=== PATIENT | male | born 1985 | race Caucasian/White ===

== ENCOUNTER 2023-01-06 08:25 | Emergency (ER) | payer SELFPAY ==
[~2023-01-06] VITALS: Ht 170.2 cm; Wt 70.0 kg
[2023-01-06 08:32] VITALS: O2SAT 100
[2023-01-06] MEDS ORDERED: LEVETIRACETAM 500MG TABLET PO ONE (08:45)
[2023-01-06] MEDS ORDERED: CHLORDIAZEPOXIDE 25MG CAPSULE PO ONE (09:30)
[2023-01-06 09:35] LABS: BASOPHILS % 0.8 % (0.0-2.0); EOSINOPHILS % 0.7 % (0.0-5.0); HEMATOCRIT. 45.5 % (42.0-52.0); HEMOGLOBIN. 15.6 g/dL (14.0-18.0); LYMPHOCYTES % 12.3 % (20.0-50.0); MEAN CORPUSCULAR HEMOGLOBIN 34.2 pg (28.0-32.0); MEAN CORPUSCULAR VOLUME 99.7 fL (80.0-94.0); MEAN PLATELET VOLUME 10.5 fl (7.4-10.4); MONOCYTES % 8.9 % (2.0-8.0); NEUTROPHILS % 77.3 % (40.0-76.0); PLATELET 133 x1000/uL (130-400); RED BLOOD CELL COUNT 4.57 mill/uL (4.7-6.1)
[2023-01-06 09:36] LABS: CHLORIDE 108 mEq/L (98-107)
[2023-01-06 09:43] LABS: ETHANOL BLOOD < 10 mg/dL (-10)
[2023-01-06] MEDS ORDERED: SODIUM CHLORIDE 0.9% 1,000 ML IV ONE (10:30)
[2023-01-06] MEDS ORDERED: ACETAMINOPHEN 325MG TABLET PO ONE (11:30)
[2023-01-06] MEDS ORDERED: LEVE750T4 MT (12:02)
[2023-01-06 12:08] VITALS: BP 133/70; PULSE 71; RESP 15; TEMP 98.4
[2023-01-06] MEDS ORDERED: ONDANSETRON 4MG ODT PO ONE (12:15)
== END 2023-01-06 12:30 | disposition home or self-care (01) ==
LOC: ER 08:39
DX: R56.9 Unspecified convulsions (principal); Z98.890 Other specified postprocedural states; Z88.8 Allergy status to other drugs, medicaments and biological substances
CPT/HCPCS: 80053; 80320; 82962; 83735; 85025; 36415; 99284; Q0162; J7030; Z7610; A4315; G0480

== ENCOUNTER 2023-01-06 12:49 | Emergency (ER) | payer SELFPAY ==
[~2023-01-06] VITALS: Ht 172.7 cm; Wt 86.0 kg
[~2023-01-06 12:49] MED LIST: LEVE750T4 MT
[2023-01-06 13:22] VITALS: O2SAT 99
[2023-01-06 15:22] VITALS: BP 122/80; PULSE 100; RESP 16; TEMP 98.3
== END 2023-01-06 15:25 | disposition home or self-care (01) ==
LOC: ER 13:30
DX: R56.9 Unspecified convulsions (principal); Z88.8 Allergy status to other drugs, medicaments and biological substances
CPT/HCPCS: 99281

== ENCOUNTER 2023-01-09 16:00 | Emergency (ER) | payer SELFPAY ==
[~2023-01-09] VITALS: Ht 170.2 cm; Wt 91.0 kg
[2023-01-09 16:08] VITALS: O2SAT 99
[2023-01-09] MEDS ORDERED: LEVETIRACETAM 1000MG PREMIX 100 ML IV ONE (16:45)
[2023-01-09 17:05] LABS: BASOPHILS % 0.6 % (0.0-2.0); EOSINOPHILS % 0.6 % (0.0-5.0); HEMATOCRIT. 46.6 % (42.0-52.0); HEMOGLOBIN. 15.8 g/dL (14.0-18.0); LYMPHOCYTES % 39.1 % (20.0-50.0); MEAN CORPUSCULAR HEMOGLOBIN 34.3 pg (28.0-32.0); MEAN CORPUSCULAR VOLUME 101.1 fL (80.0-94.0); MEAN PLATELET VOLUME 9.6 fl (7.4-10.4); MONOCYTES % 5.4 % (2.0-8.0); NEUTROPHILS % 54.3 % (40.0-76.0); PLATELET 171 x1000/uL (130-400); RED BLOOD CELL COUNT 4.61 mill/uL (4.7-6.1); RED CELL DISTRIBUTION WIDTH 14.3 % (11.6-14.6)
[2023-01-09 17:15] LABS: CHLORIDE 107 mEq/L (98-107)
[2023-01-09 17:36] LABS: ETHANOL BLOOD 407 mg/dL (-10)
[2023-01-09 18:30] VITALS: TEMP 98.6
[2023-01-09] MEDS ORDERED: FOLIC ACID 1 MG, THIAMINE HCL 100 MG, MVI, ADULT NO.1 10 ML in DEXTROSE 5% WATER 1,000 ML IV ONE ×4 (18:30)
[2023-01-09 21:34] VITALS: BP 127/77; PULSE 83; RESP 14
== END 2023-01-09 22:13 | disposition home or self-care (01) ==
LOC: ER 16:00
DX: R56.9 Unspecified convulsions (principal)
CPT/HCPCS: 80053; 80320; 85025; 36415; 93005; 96365; 96366; 96375; 99285; J1953; J3490 ×2; J3411; J7070; G0480

== ENCOUNTER 2023-01-16 13:55 | Emergency (ER) | payer MEDICAID ==
[~2023-01-16] VITALS: Ht 175.3 cm; Wt 106.0 kg
[2023-01-16 14:02] VITALS: O2SAT 99
[2023-01-16] MEDS ORDERED: LEVETIRACETAM 500MG PREMIX 100 ML IV ONE (14:30)
[2023-01-16] MEDS ORDERED: LORAZEPAM 2MG/ML CPJ IV ONE (14:30)
[2023-01-16] MEDS ORDERED: CHLORDIAZEPOXIDE 25MG CAPSULE PO ONE (14:30)
[2023-01-16] MEDS ORDERED: SODIUM CHLORIDE 0.9% 1,000 ML IV ONE ×2 (14:30)
[2023-01-16] MEDS ORDERED: METOCLOPRAMIDE HCL 10MG/2ML VIAL IV ONE (14:45)
[2023-01-16 15:00] LABS: BASOPHILS % 0.7 % (0.0-2.0); EOSINOPHILS % 0.4 % (0.0-5.0); HEMATOCRIT. 42.8 % (42.0-52.0); HEMOGLOBIN. 14.5 g/dL (14.0-18.0); LYMPHOCYTES % 32.7 % (20.0-50.0); MEAN CORPUSCULAR HEMOGLOBIN 34.1 pg (28.0-32.0); MEAN CORPUSCULAR VOLUME 100.5 fL (80.0-94.0); MEAN PLATELET VOLUME 9.5 fl (7.4-10.4); NEUTROPHILS % 55.2 % (40.0-76.0); PLATELET 96 x1000/uL (130-400); RED BLOOD CELL COUNT 4.27 mill/uL (4.7-6.1); RED CELL DISTRIBUTION WIDTH 13.9 % (11.6-14.6)
[2023-01-16 15:08] LABS: CHLORIDE 100 mEq/L (98-107)
[2023-01-16 15:13] LABS: ETHANOL BLOOD 86 mg/dL (-10)
[2023-01-16] MEDS ORDERED: KCL 20MEQ/100ML PREMIX 100 ML IV ONE (15:30)
[2023-01-16] MEDS ORDERED: POTASSIUM CHLORIDE 20MEQ TABLET SR PO NR (20:26)
[2023-01-16 23:45] VITALS: BP 118/77; PULSE 82; RESP 16; TEMP 98.4
== END 2023-01-16 23:53 | disposition home or self-care (01) ==
LOC: ER 13:55
DX: F10.239 Alcohol dependence with withdrawal, unspecified (principal); E87.6 Hypokalemia; I10 Essential (primary) hypertension; Y90.4 Blood alcohol level of 80-99 mg/100 ml
CPT/HCPCS: 80048; 80320; 85025; 36415; 96367; 96365; 96366; 96375; 99285; J1953; J2060; J2765; J3480; J7030; Z7610 ×3; G0480

== ENCOUNTER 2023-02-26 19:28 | Emergency (ER) | payer MEDICAID ==
[~2023-02-26] VITALS: Ht 172.7 cm; Wt 90.0 kg
[2023-02-26 19:36] VITALS: BP 138/62; PULSE 88; RESP 16; TEMP 98.4; O2SAT 98
[2023-02-26 20:35] LABS: BASOPHILS % 0.8 % (0.0-2.0); EOSINOPHILS % 1.2 % (0.0-5.0); HEMATOCRIT. 50.9 % (42.0-52.0); HEMOGLOBIN. 17.1 g/dL (14.0-18.0); LYMPHOCYTES % 47.3 % (20.0-50.0); MEAN CORPUSCULAR HEMOGLOBIN 33.7 pg (28.0-32.0); MEAN CORPUSCULAR HGB CONC 33.5 g/dL (31.0-37.0); MEAN CORPUSCULAR VOLUME 100.5 fL (80.0-94.0); MONOCYTES % 7.7 % (2.0-8.0); PLATELET 159 x1000/uL (130-400); RED BLOOD CELL COUNT 5.07 mill/uL (4.7-6.1); RED CELL DISTRIBUTION WIDTH 14.4 % (11.6-14.6); WHITE BLOOD COUNT 7.6 x1000/uL (4.5-11.0)
[2023-02-26 20:41] LABS: CHLORIDE 112 mEq/L (98-107); INDEX HEMOLYSI 2 (1-3); INDEX ICTERIC 1 (1-4); INDEX LIPEMIC 1 (1-3); POTASSIUM 3.8 mEq/L (3.5-5.1); SODIUM 144 mEq/L (136-145)
[2023-02-26 20:42] LABS: DIFFERENTIAL COMMENT 1
[2023-02-26 20:53] LABS: ALANINE AMINOTRANSFERASE 128 IU/L (13-61); ALBUMIN 3.9 g/dL (3.4-5.0); ASPARTATE AMINOTRANSFERASE 169 IU/L (15-37); BILIRUBIN TOTAL 0.2 mg/dL (0.1-1.0); CALCIUM 8.6 mg/dL (8.5-10.1); CARBON DIOXIDE 23 mEq/L (21-32); CREATININE 0.6 mg/dL (0.6-1.3); ETHANOL BLOOD 348 mg/dL (-10); GLUCOSE 101 mg/dL (70-105); PROTEIN TOTAL 8.8 g/dL (6.0-8.3); UREA NITROGEN BLOOD 9 mg/dL (7-21)
== END 2023-02-27 03:37 | disposition home or self-care (01) ==
LOC: ER 19:28
DX: F10.229 Alcohol dependence with intoxication, unspecified (principal); I10 Essential (primary) hypertension; Y90.8 Blood alcohol level of 240 mg/100 ml or more
CPT/HCPCS: 36415; 80053; 80320; 85025; 99283; G0480

== ENCOUNTER 2023-03-04 17:08 | Emergency (ER) | payer MEDICAID ==
[~2023-03-04] VITALS: Ht 337.8 cm; Wt 95.0 kg
[2023-03-04 17:11] VITALS: O2SAT 99
[2023-03-04] MEDS ORDERED: FAMOTIDINE 20MG/2ML VIAL IV NR (18:00)
[2023-03-04] MEDS ORDERED: SODIUM CHLORIDE 0.9% 1,000 ML IV ONE (18:00)
[2023-03-04] MEDS ORDERED: FAMOTIDINE 20MG/2ML VIAL IV ONE (18:00)
[2023-03-04 18:33] LABS: BASOPHILS % 0.7 % (0.0-2.0); EOSINOPHILS % 0.1 % (0.0-5.0); HEMATOCRIT. 43.4 % (42.0-52.0); HEMOGLOBIN. 15.2 g/dL (14.0-18.0); LYMPHOCYTES % 8.6 % (20.0-50.0); MEAN CORPUSCULAR HEMOGLOBIN 33.6 pg (28.0-32.0); MEAN CORPUSCULAR HGB CONC 35.1 g/dL (31.0-37.0); MEAN CORPUSCULAR VOLUME 95.7 fL (80.0-94.0); MEAN PLATELET VOLUME 10.2 fl (7.4-10.4); NEUTROPHILS % 84.6 % (40.0-76.0); PLATELET 179 x1000/uL (130-400); RED BLOOD CELL COUNT 4.54 mill/uL (4.7-6.1); RED CELL DISTRIBUTION WIDTH 14.3 % (11.6-14.6)
[2023-03-04 18:59] LABS: CHLORIDE 98 mEq/L (98-107); INDEX HEMOLYSI 6 (1-3); INDEX ICTERIC 1 (1-4); INDEX LIPEMIC 1 (1-3); SODIUM 133 mEq/L (136-145)
[2023-03-04 19:07] LABS: ALANINE AMINOTRANSFERASE 60 IU/L (13-61); ALBUMIN 3.6 g/dL (3.4-5.0); ASPARTATE AMINOTRANSFERASE 113 IU/L (15-37); BILIRUBIN TOTAL 1.7 mg/dL (0.1-1.0); CALCIUM 8.4 mg/dL (8.5-10.1); CARBON DIOXIDE 31 mEq/L (21-32); CREATININE 0.6 mg/dL (0.6-1.3); ETHANOL BLOOD < 10 mg/dL (-10); GLUCOSE 104 mg/dL (70-105); PROTEIN TOTAL 8.4 g/dL (6.0-8.3); UREA NITROGEN BLOOD 6 mg/dL (7-21)
[2023-03-04 19:14] LABS: POTASSIUM 5.4 mEq/L (3.5-5.1)
[2023-03-04] MEDS ORDERED: LEVETIRACETAM 500MG TABLET PO NR (19:30)
[2023-03-04 19:59] LABS: CALCIUM 7.9 mg/dL (8.5-10.1); CHLORIDE 101 mEq/L (98-107); GLUCOSE 108 mg/dL (70-105); INDEX HEMOLYSI 1 (1-3); INDEX ICTERIC 1 (1-4); INDEX LIPEMIC 1 (1-3); POTASSIUM 3.5 mEq/L (3.5-5.1); SODIUM 135 mEq/L (136-145); UREA NITROGEN BLOOD 6 mg/dL (7-21)
[2023-03-04 20:00] LABS: CARBON DIOXIDE 30 mEq/L (21-32)
[2023-03-04 20:03] LABS: CREATININE 0.6 mg/dL (0.6-1.3)
[2023-03-04] MEDS ORDERED: CALCIUM 1250MG TABLET (500MG ELEMENTAL CALCIUM) PO NR (20:30)
[2023-03-04] MEDS ORDERED: [UNRECOGNIZED DRUG - CODE] MT (20:35)
[2023-03-04 22:00] VITALS: BP 136/84; PULSE 95; RESP 17; TEMP 97.8
== END 2023-03-04 22:16 | disposition home or self-care (01) ==
LOC: ER 17:08
DX: R56.9 Unspecified convulsions (principal); I10 Essential (primary) hypertension
CPT/HCPCS: 80053; 80048; 80320; 83690; 85025; 36415; 70450; 96361; 96374; 99285; J3490; J7030; Z7610 ×2; G0480

== ENCOUNTER 2023-07-19 15:18 | Emergency (ER) | payer SELFPAY ==
[~2023-07-19] VITALS: Ht 167.6 cm; Wt 82.0 kg
[2023-07-19 15:25] VITALS: O2SAT 100
[2023-07-19] MEDS ORDERED: LEVETIRACETAM 1000MG PREMIX 100 ML IV ONE (15:30)
[2023-07-19 17:24] LABS: *AMPHETAMINES SCREEN URINE NEGATIVE (NEGATIVE); *BARBITURATES SCREEN URINE NEGATIVE (NEGATIVE); *BENZODIAZEPINES SCREEN URINE NEGATIVE (NEGATIVE); *COCAINE SCREEN URINE NEGATIVE (NEGATIVE); CANNABINOID URINE SCREEN NEGATIVE (NEGATIVE); ECSTASY MDMA SCREEN URINE NEGATIVE (NEGATIVE); METHADONE URINE SCREEN Neg (NEGATIVE); OPIATES URINE SCREEN NEGATIVE (NEGATIVE); PHENCYCLIDINE URINE SCREEN NEGATIVE (NEGATIVE)
[2023-07-19] MEDS ORDERED: ACETAMINOPHEN 325MG TABLET PO ONE (17:45)
[2023-07-19 17:56] LABS: BASOPHILS % 0.6 % (0.0-2.0); EOSINOPHILS % 0.2 % (0.0-5.0); HEMATOCRIT. 43.2 % (42.0-52.0); HEMOGLOBIN. 14.7 g/dL (14.0-18.0); LYMPHOCYTES % 14.5 % (20.0-50.0); MEAN CORPUSCULAR HEMOGLOBIN 33.5 pg (28.0-32.0); MEAN CORPUSCULAR HGB CONC 34.1 g/dL (31.0-37.0); MEAN CORPUSCULAR VOLUME 98.2 fL (80.0-94.0); MEAN PLATELET VOLUME 10.1 fl (7.4-10.4); MONOCYTES % 10.9 % (2.0-8.0); NEUTROPHILS % 73.8 % (40.0-76.0); PLATELET 78 x1000/uL (130-400); RED CELL DISTRIBUTION WIDTH 13.7 % (11.6-14.6); WHITE BLOOD COUNT 6.9 x1000/uL (4.5-11.0)
[2023-07-19 18:12] LABS: LACTIC ACID 3.4 mmol/L (0.4-2.0)
[2023-07-19 18:14] LABS: ALANINE AMINOTRANSFERASE 60 IU/L (10-49); ALBUMIN 3.9 g/dL (3.2-4.8); ASPARTATE AMINOTRANSFERASE 137 IU/L (<34); BILIRUBIN TOTAL 0.6 mg/dL (0.1-1.0); CALCIUM 8.6 mg/dL (8.7-10.4); CARBON DIOXIDE 23 mEq/L (21-32); CHLORIDE 101 mEq/L (98-107); CREATININE 0.7 mg/dL (0.6-1.3); GLUCOSE 98 mg/dL (70-105); POTASSIUM 3.7 mEq/L (3.5-5.1); PROTEIN TOTAL 7.5 g/dL (6.0-8.3); SODIUM 136 mEq/L (136-145); UREA NITROGEN BLOOD 12 mg/dL (9-23)
[2023-07-19 18:21] VITALS: TEMP 98.6
[2023-07-19 18:26] LABS: ETHANOL BLOOD < 10 mg/dL (<10)
[2023-07-19] MEDS ORDERED: KEPP500 MT (18:26)
[2023-07-19 19:02] VITALS: BP 138/68; PULSE 100; RESP 17
== END 2023-07-19 16:30 | disposition home or self-care (01) ==
LOC: ER 15:18
DX: R56.9 Unspecified convulsions (principal); I10 Essential (primary) hypertension; F10.229 Alcohol dependence with intoxication, unspecified; Y90.0 Blood alcohol level of less than 20 mg/100 ml
CPT/HCPCS: 80053; 80305; 80320; 83605; 85025; 36415; 96365; 99284; J1953; Z7610 ×2; G0480